=== PATIENT | male | born 1955 | race African-American/Black ===

== ENCOUNTER 2018-05-24 12:08 | Emergency (ER) | payer MEDICAID ==
[~2018-05-24] VITALS: Ht 175.3 cm; Wt 73.0 kg
[2018-05-24 12:14] VITALS: BP 133/63
== END 2018-05-24 14:09 | disposition home or self-care (01) ==
LOC: ER 12:09
DX: H10.9 Unspecified conjunctivitis (principal)
CPT/HCPCS: 99283

== ENCOUNTER 2020-12-22 12:48 | Emergency (ER) | payer MEDICAID ==
[~2020-12-22] VITALS: Ht 177.8 cm; Wt 73.0 kg
[2020-12-22 12:53] VITALS: BP 156/103
[2020-12-22] MEDS ORDERED: TETANUS, DIPHTHERIA, PERTUSSIS VAC/PF 0.5ML (>7YR OLD) IM ONE (13:15)
[2020-12-22] MEDS ORDERED: LIDOCAINE HCL/EPINEPHRINE 1%-EPI 1:100,000 20 ML VIAL INFIL ONE (17:30)
[2020-12-22] MEDS ORDERED: BACITRACIN ZINC OINT UDPKT TOP ONE (17:30)
[2020-12-22] MEDS ORDERED: ACET-2708 MT (17:45)
== END 2020-12-22 18:09 | disposition home or self-care (01) ==
LOC: ER 12:48
DX: S01.111A Laceration without foreign body of right eyelid and periocular area, initial encounter (principal); W18.30XA Fall on same level, unspecified, initial encounter; Y93.89 Activity, other specified; Y92.89 Other specified places as the place of occurrence of the external cause; Y99.8 Other external cause status
CPT/HCPCS: 12013; 70450; 70486; 72125; 90471; 90715; 99285; J3490

== ENCOUNTER 2020-12-24 14:16 | Emergency (ER) | payer MEDICAID ==
[~2020-12-24] VITALS: Ht 175.3 cm; Wt 75.0 kg
[~2020-12-24 14:16] MED LIST: ACET-2708 MT
[2020-12-24 14:31] VITALS: BP 139/66
== END 2020-12-24 16:16 | disposition home or self-care (01) ==
LOC: ER 14:16
DX: Z48.00 Encounter for change or removal of nonsurgical wound dressing (principal)
CPT/HCPCS: 99281

== ENCOUNTER 2020-12-29 10:39 | Emergency (ER) | payer MEDICAID ==
[~2020-12-29] VITALS: Ht 175.3 cm; Wt 75.0 kg
[2020-12-29] MEDS ORDERED: BACITRACIN ZINC OINT UDPKT TOP ONE (11:45)
[2020-12-29 12:01] VITALS: BP 153/76
== END 2020-12-29 12:02 | disposition home or self-care (01) ==
LOC: ER 10:39
DX: Z48.02 Encounter for removal of sutures (principal)
CPT/HCPCS: 99282; A4217

== ENCOUNTER 2023-04-11 11:44 | Emergency (ER) | payer MEDICAID ==
[~2023-04-11] VITALS: Ht 172.7 cm; Wt 65.0 kg
[2023-04-11 12:12] VITALS: O2SAT 100
[2023-04-11] MEDS ORDERED: LIDOCAINE HCL/PF 1% 10 MG/ML 5ML VIAL INFIL ONE (12:30)
[2023-04-11] MEDS ORDERED: BACITRACIN ZINC OINT UDPKT TOP ONE (12:30)
[2023-04-11 13:18] VITALS: BP 128/85; PULSE 59; RESP 18; TEMP 98.5
== END 2023-04-11 13:19 | disposition home or self-care (01) ==
LOC: ER 11:44
DX: S11.91XA Laceration without foreign body of unspecified part of neck, initial encounter (principal); Y08.89XA Assault by other specified means, initial encounter; Y93.89 Activity, other specified; Y92.89 Other specified places as the place of occurrence of the external cause; Y99.8 Other external cause status
CPT/HCPCS: 99282; 12002; J3490